=== PATIENT | female | born 1975 | race Caucasian/White ===

== ENCOUNTER 2024-04-25 00:14 | Emergency (ER) | payer BC, SELFPAY ==
--- NOTE | ~2024-04-25 | CT_ITS ---
EXAMINATION: CT HEAD WITHOUT CONTRAST CT FACIAL BONES WITHOUT CONTRAST CLINICAL INFORMATION: Facial and head trauma. COMPARISON: None available. TECHNIQUE: Imaging was performed from the skull base to vertex without intravenous administration of contrast. In addition, helical noncontrast CT imaging was acquired through the facial bones and source images were reviewed along with axial reconstructions and sagittal and coronal MPRs. This CT examination was performed using dose optimization techniques as appropriate, variously including the following: *Automated exposure control. *Adjustment of mA and/or kV according to patient size (this includes techniques or standardized protocols for targeted exams where dose is matched to indication/reason for exam; i.e. extremities or head). *Use of iterative reconstruction technique. DLP: 870 mGy-cm FINDINGS: Head: There is no evidence of acute intracranial hemorrhage or edematous territorial infarction. Clark-white matter differentiation is preserved. There is no abnormal attenuation within the brain parenchyma. The ventricles are normal in morphology and size. No evidence for obstructive hydrocephalus. No abnormal mass effect or midline shift. No extra-axial fluid collections. No acute soft tissue or osseous abnormalities. Maxillofacial Bones: No evidence of maxillofacial bone fractures. The zygomatic arches remain intact. No nasal bone fracture. The nasal septum remains midline. No evidence of mandibular or maxillary fracture. The mandibular condyles remain well-seated in their respective temporal articular grooves. Normal appearance of the intraconal and extraconal fat. No evidence of traumatic injury to the extraocular musculature or globes. 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 Mild mucosal thickening of the paranasal sinuses. Mild rightward nasal septal deviation. The mastoid air cells and middle ear cavities are clear. No layering fluid collections. CT/CT head/brain wo IV con IMPRESSION: 1. No evidence of acute intracranial hemorrhage or edematous territorial infarction. 2. No evidence of acute fracture of the maxillofacial bones. 3. 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 Electronically signed by: Ascencion Gregory DO 04/25/2024 02:00 AM [facility] [place]
--- NOTE | ~2024-04-25 | XR_ITS ---
EXAMINATION: XR HAND/WRIST, LEFT CLINICAL INFORMATION: fall COMPARISON: None available. TECHNIQUE: PA, lateral, and oblique views of the left hand and wrist. FINDINGS: A comminuted intra-articular fracture of the distal radius with dorsal angulation is identified. Marked adjacent soft tissue inflammatory changes. A minimally displaced fracture of the ulnar styloid process is noted. Normal bone mineralization. No soft tissue emphysematous changes. XR/XR hand wrist LT IMPRESSION: 1. Comminuted intra-articular fracture of the distal radius with dorsal angulation. 2. Minimally displaced fracture of the ulnar styloid process. Electronically signed by: Esvin Gutierrez MD 04/25/2024 03:03 AM [facility]
--- NOTE | ~2024-04-25 | CT_ITS ---
EXAMINATION: CT HEAD WITHOUT CONTRAST CT FACIAL BONES WITHOUT CONTRAST CLINICAL INFORMATION: Facial and head trauma. COMPARISON: None available. TECHNIQUE: Imaging was performed from the skull base to vertex without intravenous administration of contrast. In addition, helical noncontrast CT imaging was acquired through the facial bones and source images were reviewed along with axial reconstructions and sagittal and coronal MPRs. This CT examination was performed using dose optimization techniques as appropriate, variously including the following: *Automated exposure control. *Adjustment of mA and/or kV according to patient size (this includes techniques or standardized protocols for targeted exams where dose is matched to indication/reason for exam; i.e. extremities or head). *Use of iterative reconstruction technique. DLP: 870 mGy-cm FINDINGS: Head: There is no evidence of acute intracranial hemorrhage or edematous territorial infarction. Clark-white matter differentiation is preserved. There is no abnormal attenuation within the brain parenchyma. The ventricles are normal in morphology and size. No evidence for obstructive hydrocephalus. No abnormal mass effect or midline shift. No extra-axial fluid collections. No acute soft tissue or osseous abnormalities. Maxillofacial Bones: No evidence of maxillofacial bone fractures. The zygomatic arches remain intact. No nasal bone fracture. The nasal septum remains midline. No evidence of mandibular or maxillary fracture. The mandibular condyles remain well-seated in their respective temporal articular grooves. Normal appearance of the intraconal and extraconal fat. No evidence of traumatic injury to the extraocular musculature or globes. 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 Mild mucosal thickening of the paranasal sinuses. Mild rightward nasal septal deviation. The mastoid air cells and middle ear cavities are clear. No layering fluid collections. CT/CT facial bones wo IV con IMPRESSION: 1. No evidence of acute intracranial hemorrhage or edematous territorial infarction. 2. No evidence of acute fracture of the maxillofacial bones. 3. 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 Electronically signed by: Ascencion Gregory DO 04/25/2024 02:00 AM [facility] [place]
--- NOTE | ~2024-04-25 | XR_ITS ---
EXAMINATION: XR WRIST, LEFT CLINICAL INFORMATION: post reduction COMPARISON: Left wrist radiographs 04/25/2024. TECHNIQUE: PA, lateral, and oblique views of the left wrist. FINDINGS: Images are obtained with splinting material which obscures visualization of fine underlying anatomic details. Partial visualization is made of a comminuted intra-articular fracture of the distal radius with dorsal angulation with decreased dorsal angulation in the comparison exam. Persistent visualization is made of a minimally displaced ulnar styloid process fracture. No soft tissue emphysematous changes. XR/XR wrist LT min 3V IMPRESSION: *Partial interval reduction in a comminuted intra-articular fracture of the distal radius with dorsal angulation. *Minimally displaced transverse fracture of the ulnar styloid process. Electronically signed by: Esvin Gutierrez MD 04/25/2024 04:34 AM [facility]
[2024-04-25 00:21] VITALS: BP 120/60; BP 127/69; PULSE 76; PULSE 78; PULSE 80; RESP 16; TEMP 36.7; O2SAT 100; O2SAT 98; BMI 23.5
[2024-04-25 00:32] VITALS: BP 127/69; PULSE 76; RESP 16
--- NOTE | 2024-04-25 00:37 | PC.NURSE ---
Patient awake and alert. skin pwd, resp even and non labored. speaking in full, clear sentences. patient states she was walking her dog and her dog pulled her causing her to fall forward, head strike, abrasion to chin and left cheek, denies blood LOC, denies blood thinners. left arm pain, splint in place by EMS, positive CSM. patient reports drinking approx 6-7 glasses of wine over the past few hours, states they were having a family gathering after a . son at bedside. awaiting provider eval.
[2024-04-25 01:09] VITALS: RESP 16
[2024-04-25] MEDS: HYDROmorphone HCl 1 MG/ML SYRINGE IVPUSH ×2 (01:09→03:25)
[2024-04-25] MEDS: ondansetron HCL 4 MG/2 ML VIAL IVPUSH (01:09)
--- NOTE | 2024-04-25 01:09 | ED_ITS ---
HPI - Fall General Chief Complaint: Fall Stated Complaint: POSSIBLE LEFT WRIST FRACTURE Time Seen by Provider: 04/25/24 00:23 Source: patient and EMS Mode of arrival: EMS Limitations: no limitations History of Present Illness ED Provider: LUNA HPI Narrative: 49 yo female not on thinners here with c/o trip and fall after her dog pulled her in garage - landed on face no LOC no vomiting and L wrist/hand. She is R hand dom. Pain improved with EMS IV fentanyl 75mcg. Had a family tonight and did drink a lot of wine complaint: fall Onset (ago): minute(s) ([employer]) Fall from: standing Fall witnessed: no Place fall occurred: home Loss of consciousness: none Prolonged down time: no Symptoms prior to fall: none Context: tripped/slipped Location of injury: head and face Location of injury - extremities: left: arm, elbow and hand Severity: moderate Quality: aching Associated symptoms (after fall): other (L arm pain) Related Data Previous Rx's ?Medication ?Instructions ?Recorded morphine 15 mg immediate release 15 mg PO Q6H PRN pain #15 tabs 04/25/24 tablet ondansetron 4 mg disintegrating 4 mg PO Q8H PRN nausea and 04/25/24 tablet vomiting #20 tabs Allergies Allergy/AdvReac Type Severity Reaction Status Date / Time Penicillins AdvReac Hives Verified 04/25/24 00:27 Review of Systems Review of Systems: Constitutional : No Fever, No Chills ENT/Mouth : No Ear Pain, No Hoarseness, No sore throat Eyes: No Eye Pain, No Swelling, No Redness, No Foreign Body Cardiovascular : No Chest Pain, No SOB Respiratory : No Cough, No Dyspnea Gastrointestinal : No Nausea, No Vomiting, No Diarrhea, No abdominal Pain Genitourinary : No Dysuria, No Hematuria Musculoskeletal : positive joint pain, No Myalgias, No Joint Swelling Skin : No Skin lacerations, No rash Neuro : No Weakness, No Numbness, No Loss of Consciousness, No Dizziness, No Headache All other systems reviewed and are negative [facility] Past Medical History Attestation statement: The following information was validated with the patient. Source: old records reviewed Medical History (Updated 04/25/24 @ 03:40 by Genny Cesar DO) No pertinent past medical history Social History Social History Alcohol intake: current Alcohol intake frequency: 0-2 drinks per day Alcohol type: wine Smoked in Last 30 Days: No Use of substances other than those prescribed or required for medical reasons: No Advance Directives: No Advance Directives Information Provided: Yes Do you have a plan to hurt others: No Plan Physical Exam Vital Signs: Vital Signs: Last Vital Signs Temp 97.9 F 04/25/24 02:03 Pulse 83 04/25/24 02:03 Resp 16 04/25/24 02:03 BP 105/58 L 04/25/24 02:03 Pulse Ox 99 04/25/24 02:03 O2 Del Method Room Air 04/25/24 02:03 BMI result Body Mass Index 23.5 Appearance: Alert. Oriented X3. No acute distress. Eyes: Pupils equal, round and reactive to light. ENT: Pharynx normal. L chin mild contusion and abrasion as well as L zygoma no crepitus Neck: Normal inspection. Neck supple. CVS: Normal heart rate and rhythm. Pulses normal. Respiratory: No respiratory distress. Breath sounds normal. Abdomen: Soft and non-tender. Skin: Skin warm and dry. Normal skin color. Normal skin turgor. Extremities: No lower extremity edema. L wrist and forearm + deformity with BCR, 2+ radial pulse, SILT intact Neuro: Oriented X 3. No motor deficit. No sensory deficit. Course Course Course Narrative: prior to reduction stated her index finger was tingling - after reduction symptoms resolved suspect some nerve compression from hyper flex Medications Administered Discontinued Medications Generic Name Dose Route Start Last Admin Trade Name Melody PRN Reason Stop Dose Admin Hydromorphone HCl 1 mg 04/25/24 00:55 04/25/24 01:09 Hydromorphone Hcl 1 Mg/Ml Syringe IVPUSH 04/25/24 00:56 1 mg ONCE ONE Administration Protocol Hydromorphone HCl 1 mg 04/25/24 03:21 04/25/24 03:25 Hydromorphone Hcl 1 Mg/Ml Syringe IVPUSH 04/25/24 03:22 1 mg ONCE ONE Administration Protocol Lidocaine HCl 5 ml 04/25/24 02:54 04/25/24 03:35 Lidocaine Hcl 1 % Mpf 5 Ml Vial SUBCUT 04/25/24 02:55 5 ml ONCE ONE Administration Ondansetron HCl 4 mg 04/25/24 00:55 04/25/24 01:09 Ondansetron Hcl 4 Mg/2 Ml Vial IVPUSH 04/25/24 00:56 4 mg ONCE ONE Administration Procedures Orthopedic Fracture Reduction Fracture #1: Time Out Performed: Yes Side: left Fracture Reduction Location: radius Analgesia: hematoma block Technique: direct manipulation Post Reduction X-rays Demonstrate: acceptable reduction Post-reduction neuro exam: intact Post-reduction vascular exam: intact Splint Applied: Yes Patient Tolerated Procedure: well and no complications Orthopedic Splinting/Casting Injury #1: Side: left Upper Extremity Injury Location: forearm and wrist Upper Extremity Immobilizer: sling/shoulder immobilizer and sugar tong splint Additional Comments: NV intact Medical Decision Making Medical Decision Making MDM Narrative: 49 yo female not on thinners here with c/o trip and fall due to dog hitting face and head as well as LUE injury she is NV intact at this time given ETOH use, CT scans of head/facial bones. She is alert and oriented x 3, GCS 15 no midline neck ttp doubt fracture, she has LUE injury and pain xrays ordered Differential Diagnosis Differential Diagnoses: The differential diagnosis associated with the presentation includes abrasion, fracture, sprain Admission/Observation Consideration of admission/observation: Escalation of care including admission/observation considered Independent Interpretation I performed an independent interpretation of an: Plain X-Ray and CT Scan Radiology Impression Discussion of test interpretation with radiology: I have reviewed the radiologist's reading. Independent Historian Clinical information obtained from an independent historian. History obtained from or confirmed by: EMS Critical Care Time Critical Care Time Critical Care Time: Yes Total Critical Care Time: 35 Attestation: repeat assessments, IV dilaudid x 2 with improvement in pain I attest to this time spent taking care of the patient Discharge Plan Discharge Clinical Impression: Fracture of wrist Qualifiers: Encounter type: initial encounter Fracture type: closed Laterality: left Qualified Code(s): S62.102A - Fracture of unspecified carpal bone, left wrist, initial encounter for closed fracture Abrasion of face Qualifiers: Encounter type: initial encounter Qualified Code(s): S00.81XA - Abrasion of other part of head, initial encounter Patient Disposition: Home, Self-Care Instructions: Wrist Fracture in Adults (ED), Abrasion (ED) Additional Instructions: keep elevated, keep sling in place return for weakness, numbness, severe pain, cold blue hand follow up with [facility] as soon as possible Prescriptions: New morphine 15 mg tablet 15 mg PO Q6H PRN (Reason: pain) Qty: 15 0RF Rx Instructions: partial fill okay; Partial Fill upon patient request. ondansetron 4 mg tablet,disintegrating 4 mg PO Q8H PRN (Reason: nausea and vomiting) Qty: 20 0RF Stand Alone Forms: Work/School Release Print Language: Welsh
[2024-04-25 02:03] VITALS: BP 105/58; PULSE 83; RESP 16; TEMP 36.6; O2SAT 99
[2024-04-25] MEDS: Lidocaine HCl 1 % MPF 5 ML VIAL SUBCUT (03:35)
[2024-04-25 04:41] VITALS: BP 121/50; PULSE 89; RESP 16; TEMP 36.7; O2SAT 99
[2024-04-25 04:42] VITALS: BP 121/50; PULSE 89; RESP 16; TEMP 36.7; O2SAT 99
--- OUTSIDE RECORDS SUMMARY | 2024-04-25 22:34 | XMS_ITS | Data Portability ---
Author Organization [facility] Home Service Address [address] [place] [address] Assessment Encounter Date Assessment Date Assessment LastModified by Organization Details LastModified Time 05/02/2018 05/02/2018 sudden onset of arthralgia , myalgia , nightweats, fatigue and loss of menses Not available 05/02/2018 16:00:49 Plan of Treatment Reminders Order Date Submit Date Provider Last Modified By Organization Details Last Modified Time Details Appointments None recorded. Lab lyme disease igg+igm, serum, reflex western blot 2017 [facility] (Lab), [address] [place] [address], [address], 8 15:00:44 CLIFF (antinucle ar antibodies ) screen, serum 2017 018 [facility] (Lab), [address] [place] [address], [address], 8 07:53:32 erythrocyt e sedimentat ion rate by westergren method 2017 [facility] (Lab), [address] [place], [address], 8 15:00:44 C-reactive protein, qualitativ e, serum 2017 018 [facility] (Lab), [address] [place], [address], 8 15:00:44 rf (rheumatoi d factor), titer, serum 2017 [facility] (Lab), [address] [place] [address], [address], 8 15:00:44 TSH + free T4, serum 2017 018 [facility] (Lab), [address] [place] [address], [address], 8 07:53:31 CBC w/ diff 2017 [facility] (Lab), [address] [place] [address], [address], 8 07:53:31 CMP, serum or plasma 2017 018 [facility] (Lab), [address] [place] [address], [address], 8 07:53:31 lyme disease igg+igm, serum, reflex western blot 2017 [facility] (Lab), [address] [place] [address], [address], 8 16:01:41 urinalysis , dipstick 2017 018 [email or web address] [facility] Address, [address] [place] [address], [address], 8 16:16:51 prolactin, serum 2017 018 [facility] (Lab), [address] [place] [address], [address], 8 08:20:31 FSH (follicle- stimulatin g hormone), serum 2017 018 [facility] (Lab), [address] [place] [address], [address], 8 08:20:31 estrone (E1), serum 2017 018 [facility] (Lab), [address] [place] [address], [address], 8 08:20:31 CK (creatine kinase), total, serum 2017 018 [facility] (Lab), [address] [place] [address], [address], 8 08:20:30 vitamin D, 25-hydroxy , total, serum 2017 018 [facility] (Lab), [address] [place] [address], [address], 8 08:20:30 CBC 2017 018 [facility] (Lab), [address] [place] [address], [address], 8 08:20:30 erythrocyt e sedimentat ion rate by westergren method 2017 018 [facility] (Lab), [address] [place] [address], [address], 8 08:20:31 babesia microti igg+igm Ab, serum 2017 018 [facility] (Lab), [address] [place] [address], [address], 8 08:20:31 anaplasma phagocytop hilum (hga/hge) igg+igm Ab, serum 2017 018 [facility] (Lab), [address] [place] [address], [address], 8 08:20:31 lipid panel, blood 2018 019 [facility] (Lab), [address] [place] [address], [address], 9 14:40:21 CBC w/ diff 2018 019 [facility] (Lab), [address] [place], [address], 9 14:40:21 CMP, serum or plasma 2018 019 [facility] (Lab), [address] [place], [address], 9 14:40:21 Referral orthopedic referral 2017 018 REYAlisson Mckeon MD, [address] [place], [address], 8 09:25:51 rheumatolo gist referral 2017 018 [place], [address] [place] [address], [address], 8 09:15:18 physical therapist referral 2018 019 [facility], [address] [place] [address], [address], 9 09:28:22 Procedures None recorded. Surgeries None recorded. Imaging XR, hip, unilateral 2017 018 REY Not available 8 16:29:34 Medication Orders diclofenac sodium 75 mg tablet,del ayed release 2017 [facility]18 [email or web address] [address] [place], [address], 8 14:16:34 naproxen 500 mg tablet 2017 018 INTERFACE [facility], [address] [place], [address], 8 14:32:09 omeprazole 20 mg capsule,de layed release 2017 018 INTERFACE [facility], [address] [place], [address], 8 14:32:09 Patient TargetsNo targets recorded. Patient Instructions Encounter Date Encounter Id Patient Instructions Last Modified By Organization Details Last Modified Time 03/28/2018 [id number] carpal tunnel syndrome: care instructions Not available 03/28/2018 14:49:47 carpal tunnel syndrome: exercises Not available 03/28/2018 14:49:48 04/12/2018 [id number] tick bite: care instructions Not available 04/12/2018 14:32:06 05/02/2018 [id number] Urinary Tract Infection (UTI) in Women: Care Instructions Not available 05/02/2018 16:16:51 total time 40 [email or web address] Not available 16:06:19 Reason for Referral Orthopedic Referral for Carp al tunnel syndrome Referring Physician: Yamilex Yun, Internal Medicine, Encounter Date: 04/12/2018 Pc Analyst Referral for Multiple joint pain diffuse myalgia arthralgia Referring Physician: Alexei Olsen, Internal Medicine, Encounter Date: 05/12/2018 Physical Therapist Referral for Achilles tendinitis Referring Physician: Alexei Olsen, Internal Medicine, Encounter Date: 09/19/2018 Results Created Date Observation Date Name Description Value Unit Range Abnormal Flag Note LastModifiedBy Organization Detail LastModifiedTime 05/02/20 18 05/02/2018 urina lysis , dipst ick Leukocytes Negati ve Not Available [facility] Old Address [address] [place], [address], 05/02/2018 16:16:17 05/02/20 18 05/02/2018 urina lysis , dipst ick Nitrite negati ve Not Available [facility] Old Address [address] [place], [address], 05/02/2018 16:16:17 05/02/20 18 05/02/2018 urina lysis , dipst ick Urobilinogen .2 Not Available [facility] ld Address [address] [facility] [place], [address], 05/02/2018 16:16:17 05/02/20 18 05/02/2018 urina lysis , dipst ick Protein Negati ve Not Available [facility] Old Address [address] [place] [address],[place], [address], 05/02/2018 16:16:17 05/02/20 18 05/02/2018 urina lysis , dipst ick pH 6.5 Not Available [facility] Old Address [address] [place] [address],[place], [address], 05/02/2018 16:16:17 05/02/20 18 05/02/2018 urina lysis , dipst ick Blood Negati ve Not Available [facility] Old [address],[place], [address], 05/02/2018 16:16:17 05/02/20 18 05/02/2018 urina lysis , dipst ick Specific Doran 1.015 Not Available [facility] Address [address] [place] [address],[place], [address], 05/02/2018 16:16:17 05/02/20 18 05/02/2018 urina lysis , dipst ick Ketone Negati ve Not Available [facility] Old [address],[place], [address], 05/02/2018 16:16:17 05/02/20 18 05/02/2018 urina lysis , dipst ick Bilirubin Negati ve Not Available [facility] Old Address [address] [place] [address],[place], [address], 05/02/2018 16:16:17 05/02/20 18 05/02/2018 urina lysis , dipst ick Glucose Negati ve Not Available [facility] Old [address],[place], [address], 05/02/2018 16:16:17 05/02/20 18 05/02/2018 urina lysis , dipst ick Appearance Clear Not Available [facility] Old Address [address] [place], [place] [address] [place] [place], [address], 05/02/2018 16:16:17 05/02/20 18 05/02/2018 urina lysis , dipst ick Color Pale Yellow Not Available [facility] Old Address [address] [place] [address] [place], [address], 05/02/2018 16:16:17 04/13/20 18 04/13/2018 XR, hip, unila teral No observ ation record ed. sbucko [address], [address], 04/14/2018 10:29:32 05/23/19 19 05/23/2018 MAMMO , scree radha, bilat eral No observ ation record ed. [email or web address] [facility] [address] [place] [address], [address], 05/23/2018 14:23:34 Result Notes None recorded. Problems Name Problem SNOMED Code Status Onset Date Resolution Date Notes Provider Name and Address Organization Details Recorded Time Joint pain 46302800 Completed 201705/12/2018 Alexei Olsen, [address], [address], [facility] 8 15:36:36 Multiple joint pain 27628798 Active 2017 Alexei Olsen [address], [address], [facility] 8 15:36:31 Irregular periods 83224218 Active 2017 Carie rodgers [facility] 8 14:19:04 Fracture of hand 56155929 Active 2017 Carie rodgers [facility] 8 14:19:22 Family history of breast cancer 436708839 Active 2017 Carie rodgers [facility] 8 14:19:34 Family history of cancer of colon 908094467 Active 2017 Carie rodgers [facility] 8 14:20:06 Problem Notes None recorded. Procedures Surgical History Date Name Laterality Status Provider Name and Address Organization Details Recorded Time 9 Date of Last Pap Smear completed Carie Tai [facility] 10/18/2018 08:29:02 7 Most Recent Mammogram completed Sangeetha Concepcion NP, S [address] [place] [address],[place], [address], [facility] 08/23/2017 11:20:34 3 Oral surgery procedure completed Sangeetha Concepcion NP, Carmen [address] [place] [address],[place], [address], [facility] 08/23/2017 11:18:34 Imaging Results Imaging Date Name Status LastModified by Organiz ation Details LastModified Time 04/13/2018 XR, hip, unilateral completed [email or web address] [address], [address], 04/14/2018 10:29:32 05/23/2018 MAMMO, screening, bilateral completed [email or web address] [facility] [address] [place] [address], [address], 05/23/2018 14:23:34 Procedure Notes None recorded. Medical Equipment None Reported. Allergies Allergen ID Allergen Name Allergen Category Reaction Reaction Severity Criticality Documentation Date Start Date Code Code System Note Provider Name and Address Organization Details Recorded Time 742 penicilli n V Not available Not available Not available Not available 08/10/2017 7984 RxNorm quest ionab le Carie rodgers [facility] 8 14:20:33 Medications Name Sig Start Date Stop Date Status Note LastModified by Organization Details LastModified Time doxycycline hyclate 100 mg capsule TAKE 1 CAPSULE BY MOUTH TWICE A DAY FOR 21 DAYS 09/19 completed Not Available Not Available Not Available omeprazole 20 mg capsule,maya yed release Take 1 capsule every day by oral route for 30 days. active Not Available Not Available No t Available diclofenac sodium 75 mg tablet,delay ed release Take 1 tablet twice a day by oral route for 15 days. 04/12 completed Not Available Not Available Not Available naproxen 500 mg tablet Take 1 tablet twice a day by oral route for 15 days. active Not Available Not Available No t Available Vitals Date Recorded Body height Body mass index (BMI) Body weight Heart rate Oxygen saturation Oxygen saturation in Arterial blood by Pulse oximetry Systolic blood pressure Diastolic blood pressure Provider Name and Address Organization Details Last Updated DateTime 8 168.91 cm 25.9 kg/m2 22957.4 8 g 71 /min 98 % 98 % 122 mm[Hg] 78 mm[Hg] Alanis Mora [facility] 8 14:34:10 Date Recorded Body height Body mass index (BMI) Body weight Heart rate Oxygen saturation Oxygen saturation in Arterial blood by Pulse oximetry Systolic blood pressure Diastolic blood pressure Provider Name and Address Organization Details Last Updated DateTime 8 167.64 cm 25.9 kg/m2 40712.9 3 g 81 /min 98 % 98 % 120 mm[Hg] 82 mm[Hg] Alanis Mora [facility] Internal [facility] 8 14:17:44 Date Recorded Body height Heart rate Oxygen saturation Oxygen saturation in Arterial blood by Pulse oximetry Systolic blood pressure Diastolic blood pressure Provider Name and Address Organization Details Last Updated DateTime 8 167.64 cm 93 /min 99 % 99 % 122 mm[Hg] 78 mm[Hg] Carie Tai [facility] 8 15:45:16 Date Recorded Body height Heart rate Oxygen saturation Oxygen saturation in Arterial blood by Pulse oximetry Systolic blood pressure Diastolic blood pressure Provider Name and Address Organization Details Last Updated DateTime 8 167.64 cm 75 /min 99 % 99 % 110 mm[Hg] 70 mm[Hg] Carie Tai [facility] 8 15:01:07 Date Recorded Body height Body mass index (BMI) Body weight Heart rate Oxygen saturation Oxygen saturation in Arterial blood by Pulse oximetry Systolic blood pressure Diastolic blood pressure Provider Name and Address Organization Details Last Updated DateTime 9 167.64 cm 25.2 kg/m2 96218.4 9 g 82 /min 98 % 98 % 118 mm[Hg] 70 mm[Hg] Carie Tai [facility] 9 13:52:27 Social History Question Answer Notes LastModified by Organizat ion Details LastModified Time Tobacco Smoking Status Former Smoker Not Available [facility] 03/18/2020 03:36:23 What Is Your Level Of Alcohol Consumption? Occasional [id number] Information not available 03/18/2020 What Is Your Level Of Caffeine Consumption? None [id number] Information not available 03/18/2020 What Was The Date Of Your Most Recent Tobacco Screening? 09/19/2018 [id number] Information not available 03/18/2020 How Many Years Have You Smoked Tobacco? 10 [id number] Information not available 03/18/2020 Sex: Unknown Functional Status Question Answer Note LastModified by Organization D etails LastModified Time What is your exercise level? None [id number] Information not available 03/18/2020 Mental Status None recorded. Family History Relationship Description Onset Age of this Age Resolved Age Notes LastModified by Organization Details LastModified Time Mother Ruptured cerebral aneurysm 52 52 [email or web address] Not available 2017 11:17:09 Father Hypertensive disorder [email or web address] Not available 2017 11:17:28 Medical History Condition Response Coronary Artery Disease N Gout N Kidney Stones N Blood Diseases N Hyperthyroidism N Blood Transfusion N COPD N Depression N Anxiety Disorder N Muscle, Joint, or Bone Problems N Obesity N Vision or Eye Problems Y Arthritis N Infertility N Polyps N Mental Disorder N Cancer N Stroke N Fibromyalgia N Headaches N Kidney Disease N Hospitalizations N Eating Disorder N Skin Problems N MRSA exposure N Constipation N Tuberculosis N Asthma N Hepatitis N Chronic Ear Infections N Chicken Pox Y Autism Spectrum Disorder (ASD) N Thrombophilias N Breast Cancer N Hypothyroidism N Lung Disease N Defects or Inherited Disease N Difficulty Swallowing N Anesthesia Complications N Meniere's disease N Endometriosis N Bladder or Kidney Problems N High Cholesterol N Liver Disease N Allergies/Hayfever N Thyroid Problems N GI Problems N Anemia N Ovarian Cancer N Diabetes N Seizures/Epilepsy N Congestive Heart Failure (CHF) N Eczema N Diverticulitis N Abuse/Domestic Violence N Reflux/GERD Y Heart Disease N Hypertension N Osteoporosis N Gynecological History Statement/Question Response Date of LMP 08/15/2017 Menses Monthly N Date of Last Pap Smear 10/17/2018 Current Control Method None Most Recent Mammogram 04/22/2017 Age at Menarche 10 Age at First Child 28 Obstetrics History GPAL:G 0 P 0 0 0 0 Past Encounters Encounter ID Performer Location Encounter Start Date Encounter Closed Date Diagnosis/Indication Diagnosis SNOMED-CT Code Diagnosis ICD10 Code [id number] Sangeetha Concepcion NP, S [address] [address] 08/23/2017 11:01:55 08/23/2017 17:08:03 Adult health examination 950834886 Z00.00 Perimenopa usal disorder 237794403 N95.9 Hyperlipid emia screening 580043681 Z13.[id number] [address] 03/28/2018 14:11:57 03/28/2018 15:02:26 Fatigue 26262492 R53.83 Multiple joint pain 3567 8005 M25.50 Carpal kiel torsten syndrome 44814639 G56.[id number] [address] 04/12/2018 14:10:13 04/12/2018 15:14:09 Carpal tunnel syndrome 50368204 G56.01 Pain in ri ght hip joint 2210544573 14131 M25.551 Tick bite 16070124 W57.X XXA [id number] Alexei Olsen DO [address] [address] 05/02/2018 15:38:15 05/05/2018 09:30:48 Multiple joint pain 28772789 M25.50 Amenorrhea 63312600 N91. 2 Urinary tr act infectious disease 00603092 N39.0 [id number] Alexei Olsen DO [address] [address] 05/12/2018 14:51:24 05/12/2018 15:50:20 Multiple joint pain 04418700 M25.50 [id number] DO [place]I [address] [facility] [address] 09/19/2018 13:40:08 09/19/2018 14:48:15 Adult health examination 747760967 Z00.01 Active or passive immunization 405012699 Z23 Achilles tendinitis 1165 4001 M76.60 Health Concerns Section Related Observation LastModified by Organization Detai ls LastModified Time None Recorded Concern Status LastModified by Organization Details LastModified Time None Recorded Advance Directives Directive None Recorded Payers Encounter Date Sequence Insurance Name Policy Number Policy Field Covered Member ID Field Member ID Guarantor Name 03/28/2018 1 [place] [facility] [id number] Leonidas Bae [id number] Janey Bae 04/12/2018 1 [place] [facility] [id number] Leonidas Bae [id number] Janey Bae 05/02/2018 1 [place] [facility] [id number] Leonidas Bae [id number] Janey Bae 05/12/2018 1 [place] [facility] [id number] Leonidas Bae [id number] Janey Bae 09/19/2018 1 [place] [facility] [id number] Leonidas Bae [id number] Janey Bae Notes Date Note Type Note Provider Name and Address Organization Details Recorded Time 03/28/2018 text/html 3 months ago experienced low back pain and stiffness, now it radiates up the back. gest worse the longer she's on her feet. there is pain if she presses in the center of the right buttock it feels like a bruise. she has done otc meds, chiro, and massage therapy without relief. she took diclofenac from an old rx from her which did seem to help a little. she says she feels really stiff in her right buttock if she sits for a while, but it gets better after walking a bit. however her back starts to help if she walks for too long. she has tried cbd oil as well without relief. she also has R shoulder soreness when she sleeps on it, and so she cannot sleep. she says she is only able to sleep for a few hours due to the pain. she wakes up in the morning and feels stiff in her hands, knees, right heel, back, hips. numbness right 1-3rd digits. incidentally her period is late, but she took preg test and was negative, she is also having hot flashes denies tick bites, camps possible that she missed one August ALIDA Yun [address] [facility],[place], [address], [facility] 03/28/2018 14:56:38 04/12/2018 text/html she took diclofenac for 3 days but started having a lot of acid reflux so she had to stop the medication. since then, she's had a small vacation and off her feet due to thanksgiving. and now she has been able to pinpoint the area of the most pain is the posterior aspect of her hip joint just below her right buttock. she does continue to have some stiffness in the upper back/shoulders LAST VISIT: 3 months ago experienced low back pain and stiffness, now it radiates up the back. gest worse the longer she's on her feet. there is pain if she presses in the center of the right buttock it feels like a bruise. she has done otc meds, chiro, and massage therapy without relief. she took diclofenac from an old rx from her which did seem to help a little. she says she feels really stiff in her right buttock if she sits for a while, but it gets better after walking a bit. however her back starts to help if she walks for too long. she has tried cbd oil as well without relief. she also has R shoulder soreness when she sleeps on it, and so she cannot sleep. she says she is only able to sleep for a few hours due to the pain. she wakes up in the morning and feels stiff in her hands, knees, right heel, back, hips. numbness right 1-3rd digits. incidentally her period is late, but she took preg test and was negative, she is also having hot flashes denies tick bites, camps possible that she missed one August NIYA YunRACHANA [address] [facility] [place], [place], [address], [facility] 04/12/2018 14:41:05 05/02/2018 text/html history noted as before with onset of pain in joints and hip and back since it suddenly began in december no specific reason or injury or any other source relates also had episodes of night sweats and progressive fatigue as well as onset of foot pain and states has also stopped menstruating since december Alexei Olsen DO [address] [facility],[address], [place], [address], [facility] 05/02/2018 16:17:13 05/12/2018 text/html states is about the same but now her back isnt hurting her as in hte past realtes now having pain going up her forearm as she is moving around she feels fine then after sitting down ev en for a few minutes her discomfort comes back when she attempts to get up and then she loosens up and it goes away again any immobility will do this Alexei Olsen DO [address] [facility],[address], [place], [address], [facility] 05/12/2018 15:37:00 OBGyn Episode No OBEpisode recorded.
== END 2024-04-25 04:42 | disposition home or self-care (01) ==
PROVIDERS: Emergency Provider Emergency Medicine
DX: S52.572A Other intraarticular fracture of lower end of left radius, initial encounter for closed fracture (principal); S52.612A Displaced fracture of left ulna styloid process, initial encounter for closed fracture; S00.81XA Abrasion of other part of head, initial encounter; W01.0XXA Fall on same level from slipping, tripping and stumbling without subsequent striking against object, initial encounter; Y93.K1 Activity, walking an animal; Y92.015 Private garage of single-family (private) house as the place of occurrence of the external cause; Y99.9 Unspecified external cause status
CPT/HCPCS: 25605; 70450; 70486; 73110; 73130; 96374; 96375; 96376; 99284; J1171; J2003; J2405